=== PATIENT | female | born 1945 | race Caucasian/White ===

== ENCOUNTER 2023-07-02 11:28 | Inpatient (IN) | payer BC ==
[2023-07-02] MEDS ORDERED: VANCOMYCIN 1,000 MG in DEXTROSE 5%-WATER - 250 ML IVPB ONE (13:54)
[2023-07-02] MEDS ORDERED: PIPERACILLIN/TAZOB 3.375 GM 3.375 GM in DEXTROSE 5%-WATER - 50 ML IVPB ONE (13:54)
[2023-07-02] MEDS ORDERED: IPRATROPIUM BR 0.02% 0.5 MG/2.5 ML VIAL.NEB. NEB ONE ×2 (14:18→14:31)
[2023-07-02] MEDS ORDERED: PIPERACILLIN/TAZOB 3.375 GM 3.375 GM/50 ML BAG IVPB ONE (14:25)
[2023-07-02 14:30] VITALS: BMI 35.2
[2023-07-02] MEDS ORDERED: VANCOMYCIN 1 GRAM (PRE-DOCKED) 1,000 MG/250 ML BAG IVPB ONE (14:31)
[2023-07-02] MEDS ORDERED: ALBUTEROL SO4 2.5/IPRATROPIUM 0.5 INH SOL 3 ML VIAL.NEB. NEB ONE ×2 (14:42→15:26)
[2023-07-02] MEDS ORDERED: methylPREDNISolone NA SUCC 125 MG/2 ML VIAL IVPUSH ONE (14:43)
[2023-07-02 14:52] LABS: BASO % 0.3 % (0-2.0); EOS % 0.5 % (0-4.5); HEMATOCRIT 46.2 % (32.4-45.2); HEMOGLOBIN 15.2 GM/dL (10.7-15.3); MCH 31.5 pg (25.7-33.7); MCHC 32.9 g/dl (32.0-36.0); MEAN CELL VOLUME 95.6 fl (80-96); MEAN PLT VOLUME 7.6 fl (7.5-11.1); MONO % 5.7 % (3.8-10.2); NEUT % 71.5 % (42.8-82.8); PLATELET COUNT 202 10^3/uL (134-434); RBC 4.83 M/mm3 (3.60-5.2); RDW 14.1 % (11.6-15.6); WHITE BLOOD COUNT 8.2 K/mm3 (4.0-10.0)
[2023-07-02 14:54] LABS: INR 1.05 (0.83-1.09); PROTHROMBIN TIME (PATIENT) 12.2 SEC (9.7-13.0)
[2023-07-02 14:57] LABS: ACTIVATED PTT 32.4 SECONDS (25.2-36.5)
[2023-07-02 15:14] LABS: POTASSIUM 4.3 mmol/L (3.5-5.1)
[2023-07-02 15:16] LABS: BLOOD UREA NITROGEN 29.9 mg/dL (7-18); CALCIUM 10.2 mg/dL (8.5-10.1)
[2023-07-02 15:19] LABS: CREATININE 0.8 mg/dL (0.55-1.3)
[2023-07-02 15:21] LABS: TOT PROT 7.7 g/dl (6.4-8.2)
[2023-07-02 15:24] LABS: N-TERMINAL BNP 79.9 pg/ml (5-450)
[2023-07-02 15:25] LABS: BILIRUBIN,TOTAL 0.4 mg/dL (0.2-1)
[2023-07-02] MEDS ORDERED: methylPREDNISolone NA SUCC 125 MG/2 ML VIAL ONE (19:07)
[2023-07-03] MEDS: INSULIN ASPART SLIDING SCALE (NOVOLOG) 1 VIAL SQ SCH ×4 (07:53→21:52)
[2023-07-03 14:44] VITALS: RESP 18
[2023-07-03] MEDS: CEFAZOLIN 1 GM in DEXTROSE 5%-WATER - 50 ML IVPB SCH (18:44)
[2023-07-03] MEDS: ACETAMINOPHEN 500 MG TABLET (FP) PO PRN (20:03)
[2023-07-03] MEDS ORDERED: GLYBURIDE 10 MG PO SCH (22:00)
[2023-07-03] MEDS: RIVAROXABAN 2.5 MG TABLET PO SCH (22:51)
[2023-07-04] MEDS: CEFAZOLIN 1 GM in DEXTROSE 5%-WATER - 50 ML IVPB SCH ×3 (01:06→17:08)
[2023-07-04] MEDS: INSULIN ASPART SLIDING SCALE (NOVOLOG) 1 VIAL SQ SCH ×4 (06:06→23:31)
[2023-07-04] MEDS: LISINOPRIL 5 MG TABLET PO SCH (09:21)
[2023-07-04] MEDS: ASPIRIN COATED 81 MG TABLET.EC PO SCH (09:21)
[2023-07-04] MEDS: FUROSEMIDE 40 MG TABLET (FP) PO SCH (09:21)
[2023-07-04] MEDS: RIVAROXABAN 2.5 MG TABLET PO SCH ×2 (09:21→23:30)
[2023-07-04 11:05] LABS: POTASSIUM 4.3 mmol/L (3.5-5.1)
[2023-07-04 11:07] LABS: CALCIUM 9.2 mg/dL (8.5-10.1)
[2023-07-04 11:08] LABS: ALBUMIN 3.5 g/dl (3.4-5.0); BLOOD UREA NITROGEN 28.9 mg/dL (7-18)
[2023-07-04 11:11] LABS: CREATININE 0.8 mg/dL (0.55-1.3)
[2023-07-04 11:12] LABS: BILIRUBIN,TOTAL 0.3 mg/dL (0.2-1)
[2023-07-04 11:16] LABS: TOT PROT 6.9 g/dl (6.4-8.2)
[2023-07-04] MEDS: ACETAMINOPHEN 500 MG TABLET (FP) PO PRN (15:21)
[2023-07-04] MEDS ORDERED: traMADol HCL 50 MG TABLET PO ONE (21:23)
[2023-07-04] MEDS: ATORVASTATIN CA 20 MG TABLET (FP) PO SCH (23:24)
[2023-07-05] MEDS: CEFAZOLIN 1 GM in DEXTROSE 5%-WATER - 50 ML IVPB SCH ×3 (03:31→17:20)
[2023-07-05] MEDS: ACETAMINOPHEN 500 MG TABLET (FP) PO PRN ×2 (06:50→14:54)
[2023-07-05] MEDS: INSULIN ASPART SLIDING SCALE (NOVOLOG) 1 VIAL SQ SCH ×4 (06:50→22:58)
[2023-07-05] MEDS: RIVAROXABAN 2.5 MG TABLET PO SCH ×2 (09:35→22:57)
[2023-07-05] MEDS: ASPIRIN COATED 81 MG TABLET.EC PO SCH (09:36)
[2023-07-05] MEDS: FUROSEMIDE 40 MG TABLET (FP) PO SCH (09:36)
[2023-07-05] MEDS: LISINOPRIL 5 MG TABLET PO SCH (09:36)
[2023-07-05 10:45] LABS: BASO % 0.2 % (0-2.0); EOS % 0.9 % (0-4.5); HEMATOCRIT 40.3 % (32.4-45.2); HEMOGLOBIN 13.8 GM/dL (10.7-15.3); LYMPH % 23.7 % (8-40); MCH 32.5 pg (25.7-33.7); MCHC 34.2 g/dl (32.0-36.0); MEAN PLT VOLUME 7.4 fl (7.5-11.1); NEUT % 65.2 % (42.8-82.8); PLATELET COUNT 174 10^3/uL (134-434); RBC 4.24 M/mm3 (3.60-5.2); RDW 13.8 % (11.6-15.6); WHITE BLOOD COUNT 5.8 K/mm3 (4.0-10.0)
[2023-07-05 10:56] LABS: POTASSIUM 4.1 mmol/L (3.5-5.1)
[2023-07-05 11:10] LABS: BLOOD UREA NITROGEN 25.3 mg/dL (7-18); CALCIUM 9.1 mg/dL (8.5-10.1)
[2023-07-05 11:11] LABS: ALBUMIN 3.2 g/dl (3.4-5.0)
[2023-07-05 11:13] LABS: CREATININE 0.8 mg/dL (0.55-1.3)
[2023-07-05 11:15] LABS: BILIRUBIN,TOTAL 0.3 mg/dL (0.2-1); TOT PROT 6.5 g/dl (6.4-8.2)
[2023-07-05] MEDS: ATORVASTATIN CA 20 MG TABLET (FP) PO SCH (22:57)
[2023-07-06] MEDS: CEFAZOLIN 1 GM in DEXTROSE 5%-WATER - 50 ML IVPB SCH ×3 (02:37→18:33)
[2023-07-06] MEDS: INSULIN ASPART SLIDING SCALE (NOVOLOG) 1 VIAL SQ SCH ×3 (06:10→17:09)
[2023-07-06] MEDS: ASPIRIN COATED 81 MG TABLET.EC PO SCH (09:30)
[2023-07-06] MEDS: RIVAROXABAN 2.5 MG TABLET PO SCH (09:30)
[2023-07-06] MEDS: FUROSEMIDE 40 MG TABLET (FP) PO SCH (09:30)
[2023-07-06] MEDS: LISINOPRIL 5 MG TABLET PO SCH (09:30)
[2023-07-06] MEDS ORDERED: COLLAGENASE CLOSTRIDIUM HIST. 30 GRAMS TUBE TP SCH (12:00)
[2023-07-06 14:49] VITALS: BP 104/55; PULSE 85; TEMP 98.7
== END 2023-07-06 18:14 | disposition home or self-care (01) | DRG 603 ==
LOC: JER 11:28 → JERBED 13:58 → J5S 21:40
PROVIDERS: ADMIT Family Medicine; ATTEND Family Medicine
DX: L03.116 Cellulitis of left lower limb (principal); E11.621 Type 2 diabetes mellitus with foot ulcer; L97.528 Non-pressure chronic ulcer of other part of left foot with other specified severity; E78.5 Hyperlipidemia, unspecified; E11.9 Type 2 diabetes mellitus without complications; E11.51 Type 2 diabetes mellitus with diabetic peripheral angiopathy without gangrene; Z86.718 Personal history of other venous thrombosis and embolism
CPT/HCPCS: 0241U-QW; 36415; 71045-TC-FY; 73630-TC-LT; 73718-TC-LT; 80053; 80061; 82962; 83036; 83880; 84443; 84484; 85025; 85610; 85651; 85730; 86140; 86850; 86900; 86901; 87040; 93926-TC; 93970-TC; 99285-25; G0463-25